=== PATIENT | male | born 1950 | race Caucasian/White ===

== ENCOUNTER 2019-07-07 07:53 | Emergency (ER) | payer MEDICARE, BC ==
--- NOTE | 2019-07-07 07:55 | ED Physician Documentation ---
PD HPI UPPER EXT INJURY - Stated complaint Stated Complaint: L HAND RING STUCK - History obtained from History obtained from: Patient - History of Present Illness Location: Left, Finger (ring) Type of injury: Fall Where injury occurred: Home Timing - onset: Last night (he fell and jammed ring finger last ngiht, with swelling and bruising. Had reasonable ROM. Today with swelling and pain in finger due to ring being too tight. He does not feel he broke his finger.) Similar symptoms before: Has not had sx before PD PAST MEDICAL HISTORY - Allergies Allergies/Adverse Reactions: Allergies Allergy/AdvReac Type Severity Reaction Status Date / Time No Known Drug Allergies Allergy Verified 07/07/19 07:58 PD ED PE NORMAL - Vitals Vital signs reviewed: Yes - General General: Alert and oriented X 3, No acute distress, Well developed/nourished - Derm Derm: Normal color, Warm and dry - Extremities Extremities: Other (The left ring finger shows some bruising and swelling around the IP joint and the proximal phalanx. There is swelling demarcated distal to a cold wedding ring. It does look like it is tight around the finger. He has good sensation and movement at the IP joints. He does not feel that he has anything broken. There is some bruising noted consistent with injury however. He has sensation at the tip.) Results - Vitals Vitals: Vital Signs - 24 hr 07/07/19 07:55 Temperature 36.4 C L Heart Rate 58 L Respiratory 19 Rate Blood Pressure 152/89 H O2 Saturation 99 Oxygen O2 Source Room air Departure - Departure Clinical Impression: Tight ring on finger Finger sprain Qualifiers: Encounter type: initial encounter Finger: ring finger Sprain of finger site: interphalangeal joint Laterality: left Qualified Code(s): S63.635A - Sprain of interphalangeal joint of left ring finger, initial encounter Condition: Stable Record reviewed to determine appropriate education?: Yes Instructions: ED Sprain Finger Comments: Ice and elevate the finger to reduce the swelling. Recheck if not improved over the next several days or so regarding the sprain and bruise. Will likely be stiff today.
[2019-07-07 07:58] VITALS: BP 152/89
== END 2019-07-07 08:39 | disposition home or self-care (01) ==
LOC: ED 07:53
DX: S60.445A External constriction of left ring finger, initial encounter (principal); S63.635A Sprain of interphalangeal joint of left ring finger, initial encounter; W49.04XA Ring or other jewelry causing external constriction, initial encounter; W19.XXXA Unspecified fall, initial encounter; Y92.009 Unspecified place in unspecified non-institutional (private) residence as the place of occurrence of the external cause
CPT/HCPCS: 99281